=== PATIENT | female | born 1970 | race Caucasian/White ===

== ENCOUNTER 2017-08-10 13:49 | Outpatient (CLI) | payer OTHER | END 2017-08-10 13:50 | disposition home or self-care (01) | LOC: SC 13:49 | PROVIDERS: ATTEND Internal Medicine Pulmonary Disease | DX: G47.10 Hypersomnia, unspecified (principal); G47.8 Other sleep disorders; R06.83 Snoring | CPT/HCPCS: 99203; 99212 ==

== ENCOUNTER 2017-10-04 19:19 | Outpatient (CLI) | payer OTHER | END 2017-10-04 19:20 | disposition home or self-care (01) | LOC: SC 19:19 | PROVIDERS: ATTEND Internal Medicine Pulmonary Disease | DX: G47.10 Hypersomnia, unspecified (principal); R06.83 Snoring | CPT/HCPCS: 95810 ==

== ENCOUNTER 2018-08-31 15:14 | Outpatient (CLI) | payer OTHER ==
--- NOTE | 2018-08-31 16:44 | MRI Report ---
Reason: PAIN IN UNSPECIFIED KNEE Procedure Date: 08/31/2018 Accession Number: [id number] / [id number] Procedure: MRI - Knee RT W/O CPT Code: FULL RESULT: EXAM: RIGHT KNEE MRI WITHOUT CONTRAST EXAM DATE: 08/31/2018 03:42 PM. CLINICAL HISTORY: Right knee pain, locking, patellar dislocation. COMPARISON: Right knee MRI from 11/30/2009. TECHNIQUE: Multiplanar, multisequence T1-weighted and fluid-sensitive sequences of the knee without contrast. Other: None. FINDINGS: Bones and Articular Cartilage: Small marginal osteophytes at the femoral condyles, tibial plateau, femoral trochlea, and patella. There is an approximately 1 x 0.4 cm full-thickness articular cartilage defect at the posterior aspect of the lateral femoral condyle which is new since the previous study. Focal grade 2 chondromalacia at the lateral tibial plateau. Grade 3-4 chondromalacia at the lateral patellar facet which has increased since the previous study. Lateral subluxation of the patella by approximately 7 mm. Full-thickness articular cartilage fissure at the medial patellar facet. Grade 4 chondromalacia and mild subchondral marrow edema at the lateral aspect of the lateral trochlear facet which is unchanged. Patella archie is present. Medial Meniscus: The medial meniscus is intact. Lateral Meniscus: The lateral meniscus is intact. Cruciate Ligaments: The anterior and posterior cruciate ligaments are intact. Collateral Ligaments: The medial collateral and lateral collateral ligamentous structures are intact. Tendons: The quadriceps, patellar, semimembranosus, and popliteus tendons are unremarkable. Musculature: No edema or fatty atrophy. Other: There is a moderate to large size joint effusion. There is sub-synovial fatty proliferation consistent with lipoma arborescens which has increased since the previous study. No popliteal cyst. There is an approximately 1.4 x 1.5 x 0.7 cm loose body within the medial aspect of the patellofemoral compartment. There is a 6 mm loose body within the posterolateral aspect of the medial joint compartment. The medial and lateral retinacula are intact. Small ganglion or small amount of fluid at the semimembranosus bursa. The subcutaneous tissues and fat pads are unremarkable. IMPRESSION: 1. Tricompartmental osteoarthritis which is most significant at the patellofemoral compartment. Lateral subluxation of the patella by approximately 7 mm. Patella archie is also present. 2. No meniscal tear or ligament injury. 3. Moderate to large size joint effusion. 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 4. Loose bodies within the medial aspect of the patellofemoral compartment and posterolateral aspect of the medial joint compartment. 5. Small ganglion or small amount of fluid at the semimembranosus bursa. [facility] MUSCULOSKELETAL RADIOLOGY SECTION
== END 2018-08-31 15:15 | disposition home or self-care (01) ==
LOC: DI 15:14
PROVIDERS: ATTEND Family Medicine
DX: M17.11 Unilateral primary osteoarthritis, right knee (principal); S83.011A Lateral subluxation of right patella, initial encounter; M25.461 Effusion, right knee; D17.79 Benign lipomatous neoplasm of other sites

== ENCOUNTER 2020-05-07 08:56 | Emergency (ER) | payer OTHER ==
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
[2020-05-07] MEDS ORDERED: LIDOCAINE 1%-EPI 1:100000 20 ML MDV SUBQ STA (09:20)
--- NOTE | 2020-05-07 10:05 | XRAY Report ---
PROCEDURE: Knee 3 View RT INDICATIONS: knee injury and developed effusion TECHNIQUE: AP, crosstable lateral, and sunrise views of the right knee were acquired. COMPARISON: Right MRI dated 08/31/2018 FINDINGS: Bones: No acute fracture or dislocation. No suspicious bony lesions. Full-thickness joint space na rrowing is seen in the lateral portion of the patellofemoral compartment and small marginal osteophyt es. Mild marginal osteophyte formation is also seen in the medial femorotibial compartment. Soft tissues: A moderate to large joint effusion is seen without a discrete fluid/fluid level. No elias spicious soft tissue calcifications. IMPRESSION: 1. No acute fracture or dislocation. 2. Moderate to severe degenerative changes in the patellofemoral compartment. Mild osteoarthrosis in the medial compartment. 3. Large joint effusion. Reviewed by: Aj Carballo MD on 05/07/2020 10:03 AM PDT Approved by: Aj Carballo MD on 05/07/2020 10:03 AM PDT Station ID: [id number]
[2020-05-07 10:33] VITALS: BP 129/89
== END 2020-05-07 10:32 | disposition home or self-care (01) ==
LOC: ED 08:56
DX: M25.461 Effusion, right knee (principal); M17.11 Unilateral primary osteoarthritis, right knee; S89.91XA Unspecified injury of right lower leg, initial encounter; X50.1XXA Overexertion from prolonged static or awkward postures, initial encounter; Y93.55 Activity, bike riding
CPT/HCPCS: 20610

== ENCOUNTER 2020-08-13 10:30 | Outpatient (CLI) | payer OTHER ==
--- NOTE | 2020-08-14 16:44 | Mammography Report ---
BILATERAL DIGITAL DIAGNOSTIC MAMMOGRAM 3D/2D: 08/13/2020 CLINICAL: Intermittent focal left breast pain. Comparison is made to exam dated: 07/09/2018 mammogram - [facility]. The tissue of both breasts is heterogeneously dense. This may lower the sensitivity of mammography. No significant masses, calcifications, or other findings are seen in either breast. IMPRESSION: INCOMPLETE: NEEDS ADDITIONAL IMAGING EVALUATION There is no abnormality seen in the left breast to correspond with the pain, however, ultrasound is r ecommended. This exam was interpreted at Station ID: [id number]. NOTE: For mammograms, a report in lay terms will be sent to the patient. Approximately 15% of breast malignancies will not be visualized mammographically. In the management of a palpable breast mass, a negative mammogram must not discourage biopsy of a clinically suspicious lesion. SUMMARY: Targeted ultrasound is recommended for further evaluation and will be scheduled immediately following this exam. Electronically Signed By: Aj Carballo M.D. ar/penrad:08/13/2020 11:43:24 ACR BI-RADS Category 0: Incomplete 3340F PARENCHYMAL PATTERN: (D) - The breast(s) demonstrate(s) heterogeneously dense fibroglandular winnie nichole. BI-RADS CATEGORY: (0) - 0 Ultrasound [id number] Immediate follow-up LATERALITY: (L)
--- NOTE | 2020-08-14 16:44 | Ultrasound Report ---
LIMITED ULTRASOUND OF LEFT BREAST: 08/13/2020 CLINICAL: Left nipple pain. Comparison is made to exams dated: 08/13/2020 mammogram and 07/09/2018 mammogram - [facility]. Ultrasound of the left breast retroareolar was performed. No significant abnormalities were seen sonographically in the left breast. IMPRESSION: NEGATIVE There is no sonographic evidence of malignancy. There is no abnormality seen in the left breast to correspond with the pain, however, clinical correl ation is recommended. A 1 year screening mammogram is recommended. This exam was interpreted at Station ID: [id number]. Electronically Signed By: Aj rodriguez/glenn:08/13/2020 11:44:15 Ultrasound BI-RADS: 1 Negative BI-RADS CATEGORY: (1) - 1 RECOMMENDATION: (ANNUAL) - Recommend routine annual screening mammography. [id number] 1 year screening LATERALITY: (B)
== END 2020-08-13 10:31 | disposition home or self-care (01) ==
LOC: DI 10:30
PROVIDERS: ATTEND Family Medicine
DX: N64.4 Mastodynia (principal); Z76.89 Persons encountering health services in other specified circumstances
CPT/HCPCS: 76642; 77066

== ENCOUNTER 2022-04-25 09:06 | Outpatient (CLI) | payer OTHER ==
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
[2022-04-25 10:00] VITALS: BP 128/73
== END 2022-04-25 09:07 | disposition home or self-care (01) ==
LOC: SC 09:06
PROVIDERS: ATTEND Nurse Practitioner Family
DX: R06.83 Snoring (principal); G47.8 Other sleep disorders; E66.9 Obesity, unspecified; Z68.30 Body mass index [BMI] 30.0-30.9, adult; Z87.891 Personal history of nicotine dependence
CPT/HCPCS: 99203; 99212

== ENCOUNTER 2022-05-06 20:25 | Outpatient (CLI) | payer OTHER | END 2022-05-06 20:26 | disposition home or self-care (01) | LOC: SC 20:25 | PROVIDERS: ATTEND Nurse Practitioner Family | DX: G47.33 Obstructive sleep apnea (adult) (pediatric) (principal); G47.61 Periodic limb movement disorder | CPT/HCPCS: 95810 ==

== ENCOUNTER 2022-05-23 15:27 | Outpatient (CLI) | payer OTHER ==
[2022-05-23 15:55] VITALS: BP 122/76
--- NOTE | 2022-05-23 15:55 | SLEEP CARE CONSULTATION ---
Information from patient questionnaire entered by Tamara Lopez MA. I have reviewed and concur with the information entered by Tamara Lopez MA. This document represents the service I personally performed and the decisions made by , Helena Lopez ARNP. History of Present Illness Service Date and Time: 05/23/2022 1527 Initial [place] Sleepiness Scale score: 10 (04/24/2022) Current [place] Sleepiness Scale score: 10 (05/23/2022) Additional HPI information: KATRINA DENTON returns for follow up and results of the recently performed polysomnography. I explained the pathophysiology behind obstructive sleep apnea. We then spent quite a bit of time discussing different treatment options. For mild obstructive sleep apnea, surgery and oral appliance are alternatives to nasal CPAP therapy but in moderate or severe cases, nasal CPAP is the most effective and reliable treatment. Because apnea is primarily in supine position, then positional management therapy could be effective. Methods discussed such as positioning with pillows to prevent supine sleep. I reviewed the impact of weight changes on sleep apnea and strongly recommended losing weight. After some discussion, the patient opted to go with the nasal CPAP therapy. Nasal autoCPAP set at [id number] will be ordered with rationale explained. A manual titration study will be ordered if unable to find optimal pressure with office adjustments. I explained how CPAP machine works and what to expect when using the machine. Using CPAP every night in order to get used to it was emphasized. Patient advised to put CPAP mask on before getting into bed so as not to fall asleep without CPAP. To assist acclimation to CPAP use, it could also be used for a short time during day while reading or watching TV. The patient was instructed to call the CPAP supplier to discuss any mechanical problem that may occur. If the mask given is uncomfortable or is difficult to keep on through the night even with adjustment, contact the CPAP supplier as many will replace with an other mask style if notified before 30 days. If snoring or perceives is not getting enough air or too much air from the machine, notify this office. Patient does not drink alcohol. Patient was cautioned about risks of drowsy driving until sleepiness symptoms resolve. Patient denies drowsy driving. Sleep Study - Results Type of Sleep Study: Polysomnography (F/U POLY, 05/06/2022 [facility], POS,) Prior sleep studies: Yes Year and Where: 2016 [facility] Polysomnography/Home Sleep Study results: IMPRESSION: The quality of the study is good. The patient had normal sleep efficiency. Except for mild sleep fragmentation, the sleep architecture was normal as well. Respiratory monitoring showed mild obstructive sleep apnea-hypopnea (AHI = 7.8) associated with frequent arousals, oxyhemoglobin desaturation and mild hypoxia ([place]on oxygen saturation of 86%). The respiratory events occurred mainly during supine sleep (supine AHI = 10.0; nonsupine = 5.22). Snore was moderate to loud in int ensity. There was mild periodic leg movement of sleep not contributing to the sleep fragmentation. Cardiac rhythm was normal sinus rhythm without significant arrhythmia. No abnormal behavior (parasomnia) observed during the night. Allergies and Home Medications Known drug allergies: Yes (PN) Home medication list reviewed: Yes (no changes) Allergy and home medication list: Allergies Penicillins Allergy (Verified 05/07/20 08:58) throat swelling Review of Systems Review of systems same as previous: Yes (no changes) Physical Exam Vital signs obtained and entered by: ADARSH MAGANA Blood Pressure: 122/76 (RESP16, LEFT, PULSE 65) Heart Rate: 65 O2 Saturation: 97 (PAPER MASK) Height: 5 ft 8 in Weight: 200 lb 11.2 oz (CLOTHES) Weight change since last visit: LOSING - WALKING, HEALTHY DIET Body Mass Index: 30.5 BMI Classification: Obese Impression and Plan 1. Obstructive Sleep Apnea-Hypopnea Syndrome, mild, with lowest oxygen saturation of 86%. Obviously this is the cause of the patients symptoms of unrefreshed sleep, and excessive daytime sleepiness. Positive pressure therapy could benefit attention deficit. As mentioned above, the patient will be started on nasal autoCPAP therapy with pressure set at 4-15 cmH2O. Compliance guidelines also reviewed. A copy of compliance guidelines will be given for reference at check out. Because the apnea is more severe supine, I instructed to avoid sleeping supine using pillow positioning until able to start CPAP use. 2. Periodic limb movement, mild, that did not fragment patients sleep. Periodic limb movement of sleep (PLMS) is characterized by episodes of repetitive limb movements that occur during sleep and usually involve the lower limbs. The etiology is unknown but may follow up with PCP if become troublesome. Caffeine can also aggravate PLMS and should be avoided. Sleep hygiene methods can also improve sleep as well as lifestyle changes such as regular exercise. Patient was advised that no treatment is needed at this time. If symptoms increase, then further evaluation is indicated. * Nasal auto CPAP therapy, pressure at 4-15 cm H2O. * Attempt to lose weight. * Avoid alcohol consumption near bedtime. * Avoid supine sleep until using CPAP. * The patient is again cautioned about driving until sleepiness completely resolves. * Return one month after CPAP obtained. I will assess response to therapy and compliance at that time. Counseling Topics: Weight loss health impact Visit Type: In Office Time Spent with Patient (minutes): 20 Provider Statement: I spent 100% of the Face to Face Visit with the patient with greater than 50% spent counseling the patient and coordination of care.
== END 2022-05-23 15:28 | disposition home or self-care (01) ==
LOC: SC 15:27
PROVIDERS: ATTEND Nurse Practitioner Family
DX: G47.33 Obstructive sleep apnea (adult) (pediatric) (principal); G47.61 Periodic limb movement disorder; E66.9 Obesity, unspecified; Z68.30 Body mass index [BMI] 30.0-30.9, adult
CPT/HCPCS: 99212; 99213

== ENCOUNTER 2023-03-06 11:23 | Outpatient (CLI) | payer OTHER | END 2023-03-06 23:59 | disposition critical access hospital (66) | LOC: EMS 11:23 | DX: R10.32 Left lower quadrant pain (principal); R10.2 Pelvic and perineal pain; R10.814 Left lower quadrant abdominal tenderness; R39.15 Urgency of urination; R11.0 Nausea; R06.02 Shortness of breath; R55 Syncope and collapse | CPT/HCPCS: A0425; A0427 ==

== ENCOUNTER 2023-03-06 11:44 | Emergency (ER) | payer OTHER ==
[2023-03-06] MEDS ORDERED: ONDANSETRON 4 MG/2 ML VIAL IVP STA (11:51)
[2023-03-06] MEDS ORDERED: KETOROLAC 15 MG/ML VIAL IVP STA (11:51)
[2023-03-06] MEDS ORDERED: HYDROmorphone 1 MG/ML CARPUJECT IVP STA (11:51)
[2023-03-06] MEDS ORDERED: SODIUM CHLORIDE 0.9% 1,000 ML IV STA (11:51)
--- NOTE | 2023-03-06 11:52 | ED Physician Documentation ---
PD HPI ABD PAIN - Stated complaint Stated Complaint: LLQ ABD PX - Chief complaint Chief Complaint: Abd Pain - History obtained from History obtained from: Patient - Additional information Additional information: Otherwise healthy 52-year-old woman has had urinary frequency without dysuria for about a week or so. Went to the [facility] where she says she had blood work and urine done, this was about 5 days ago.. She never heard results. Today she developed severe sudden onset left lower quadrant pain associated with nausea at approximately 10:30 in the morning. It is a sharp stabbing pain that she had never had before. No history of renal colic. She received 50 mcg of fentanyl on route with good but transient improvement of her pain. PD PAST MEDICAL HISTORY - Past Medical History Cardiovascular: None Neuro: None Endocrine/Autoimmune: None - Past Surgical History Past Surgical History: Yes /[employer]: section - Present Medications Home Medications: Ambulatory Orders Medication Instructions Recorded Confirmed Meclizine [Antivert] 25 mg PO Q6H PRN #20 tablet 02/23/14 Ondansetron [Zofran Odt] 8 mg PO Q6H PRN #10 tab.rapdis 02/23/14 Ibuprofen [Motrin] 800 mg PO Q8H PRN #30 tablet 03/06/23 Oxycodone HCl/Acetaminophen 1 - 2 each PO Q6H PRN #14 tablet 03/06/23 [Percocet 5-325 mg Tablet] Tamsulosin [Flomax] 0.4 mg PO DAILY #14 cap 03/06/23 - Allergies Allergies/Adverse Reactions: Allergies Allergy/AdvReac Type Severity Reaction Status Date / Time Penicillins Allergy throat Verified 05/07/20 08:58 swelling - Social History Does the pt smoke?: No Smoking Status: Never smoker Does the pt drink ETOH?: No Does the pt have substance abuse?: No PD ED PE NORMAL - Vitals Vital signs reviewed: Yes - General General: Alert and oriented X 3, Other (Appears uncomfortable) - Abdomen Abdomen: Normal bowel sounds, Soft, Other (Minimal left lower quadrant tenderness, no surgical signs) - Neuro Neuro: Alert and oriented X 3, Normal speech - Psych Psych: Normal mood, Normal affect Results - Vitals Vitals: Vital Signs - 24 hr 03/06/23 03/06/23 03/06/23 11:48 12:42 12:56 Temperature 36.5 C Heart Rate 66 68 Respiratory 16 16 Rate Blood Pressure 186/103 H 144/88 H O2 Saturation 100 100 Oxygen O2 Source Room air - Labs Labs: Laboratory Tests 03/06/23 03/06/23 03/06/23 12:15 12:15 12:43 WBC 4.3 L RBC 4.72 Hgb 13.4 Hct 41.8 MCV 88.6 MCH 28.4 MCHC 32.1 RDW 13.0 Plt Count 380 MPV 8.6 Neut # (Auto) 3.0 Lymph # (Auto) 0.9 L [place] # (Auto) 0.3 Eos # (Auto) 0.1 Baso # (Auto) 0.1 Absolute Nucleated RBC 0.00 Nucleated RBC % 0.0 Sodium Potassium Chloride Carbon Dioxide Anion Gap BUN Creatinine Estimated GFR (MDRD) Glucose Calcium Total Bilirubin AST ALT Alkaline Phosphatase Total Protein Albumin Globulin Albumin/Globulin Ratio Urine Color YELLOW Urine Clarity SL. CLOUDY Urine pH 7.0 Ur Specific [place] 1.020 Urine Protein NEGATIVE Urine Glucose (UA) NEGATIVE Urine Ketones NEGATIVE Urine Occult Blood TRACE-INTA Urine Nitrite NEGATIVE Urine Bilirubin NEGATIVE Urine Urobilinogen 0.2 (NORMAL) Ur Leukocyte Esterase NEGATIVE Urine RBC 0-5 Urine WBC 0-3 Ur Squamous Epith Cells RARE Squamous Amorphous Sediment Moderate Urine Bacteria Rare Ur Microscopic Review INDICATED Urine Culture Comments NOT INDICATED Urine HCG, Qual NEGATIVE 03/06/23 12:43 WBC RBC Hgb Hct MCV MCH MCHC RDW Plt Count MPV Neut # (Auto) Lymph # (Auto) [place] # (Auto) Eos # (Auto) Baso # (Auto) Absolute Nucleated RBC Nucleated RBC % Sodium 135 Potassium 3.4 L Chloride 104 Carbon Dioxide 22 Anion Gap 9.0 BUN 21 H Creatinine 0.8 Estimated GFR (MDRD) 76 L Glucose 109 H Calcium 8.4 L Total Bilirubin 0.5 AST 15 ALT 17 Alkaline Phosphatase 50 Total Protein 6.3 L Albumin 3.5 Globulin 2.8 Albumin/Globulin Ratio 1.3 Urine Color Urine Clarity Urine pH Ur Specific [place] Urine Protein Urine Glucose (UA) Urine Ketones Urine Occult Blood Urine Nitrite Urine Bilirubin Urine Urobilinogen Ur Leukocyte Esterase Urine RBC Urine WBC Ur Squamous Epith Cells Amorphous Sediment Urine Bacteria Ur Microscopic Review Urine Culture Comments Urine HCG, Qual - Rads (name of study) CT KUB Relevant Findings:: Final report received, EMP independent interpretation of test PD Medical Decision Making - ED course ED course: 52-year-old woman who presents with sudden onset left lower quadrant left flank pain consistent with renal colic which is proven on CT. She was all but pain- free after IV Toradol and Dilaudid here. We discussed the incidental findings on her CT including gallstones, hiatal and umbilical hernias. Departure - Departure Disposition: 01 Home, Self Care Clinical Impression: Renal colic Condition: Good Record reviewed to determine appropriate education?: Yes Instructions: ED Stone Renal W Colic Prescriptions: Tamsulosin [Flomax] 0.4 mg PO DAILY #14 cap Ibuprofen [Motrin] 800 mg PO Q8H PRN #30 tablet PRN Reason: PAIN &/OR FEVER Oxycodone HCl/Acetaminophen [Percocet 5-325 mg Tablet] 1 - 2 each PO Q6H PRN #14 tablet PRN Reason: pain Comments: I [facility] [place]. As discussed, the cause of your pain today is a 3 mm left ureteral/kidney stone. Given the size I expect to pass relatively quickly. Until it does strain your urine as we discussed and if you obtain any material taken to your doctor for examination. Return for new or worsening symptoms. Incidental findings on CT included gallstones, small hiatal hernia and a small umbilical hernia. I am prescribing a short course of narcotic pain medication for you. These are potentially dangerous and addictive medications that should be used carefully. These medications may constipate you. Take an [id number] stool softener (docusate) twice daily with plenty of water while taking these medications. If you go 24 hours without a bowel movement, take [id number] miralax, per package instructions. Do not drink or drive while taking these medications. If you received narcotic or sedating medications while in the emergency department, do not drive for 24 hours. Store this medication in a safe, secure place and out of reach of children. It is a violation of federal law to give or sell this medication to another person or to use in a manner other than prescribed. The ED will not refill narcotic prescriptions, including prescriptions lost or stolen. To dispose of unwanted medications: 1. [facility] at [address] in [place] has a medication drop box. They accept prescription medications (in pill form) Thursday through Thursday 9:00 a.m. to 5:00 p.m. 2. The [facility] accepts prescription medications (in pill form only) for disposal year round. Call for more information. 3. Contact the [facility] for the next [facility] sponsored prescription drug collection event. , [phone], or [phone]; Note that many narcotic pain relievers also contain Tylenol/acetaminophen. Please ensure that your total dose of acetaminophen from all sources does not exceed 3 g (3000 mg) per day.
[2023-03-06 12:24] LABS: HCG UR QUAL NEGATIVE
[2023-03-06 12:31] LABS: BILIRUBIN,URINE NEGATIVE (NEGATIVE); GLUCOSE, URINE (UA) NEGATIVE (NEGATIVE); KETONES,URINE (UA) NEGATIVE (NEGATIVE); LEUKOCYTE ESTERASE, URINE NEGATIVE (NEGATIVE); NITRITE,URINE NEGATIVE (NEGATIVE); OCCULT BLOOD,URINE TRACE-INTA (NEGATIVE); PROTEIN,URINE NEGATIVE (NEGATIVE); UROBILINOGEN,URINE 0.2 (NORMAL) E.U./dL (NORMAL)
[2023-03-06 12:32] LABS: CLARITY,URINE SL. CLOUDY (CLEAR)
[2023-03-06 12:47] LABS: AMORPHOUS SEDIMENT,UR Moderate /LPF; BACTERIA,URINE Rare /HPF (None Seen); RBC,URINE 0-5 /HPF (0-5); SQUAMOUS EPITHELIAL CELL,UR RARE Squamous (<= Few); WBC,URINE 0-3 /HPF (0-5)
[2023-03-06 12:48] LABS: BASOPHILS # (AUTO) 0.1 10^3/uL (0.0-0.1); BASOPHILS % (AUTO) 1.4 %; EOSINOPHILS # (AUTO) 0.1 10^3/uL (0.0-0.7); EOSINOPHILS % (AUTO) 2.1 %; HCT - HEMATOCRIT 41.8 % (37.0-47.0); HGB - HEMOGLOBIN 13.4 g/dL (12.0-16.0); LYMPHOCYTES # (AUTO) 0.9 10^3/uL (1.5-3.5); LYMPHOCYTES % (AUTO) 21.1 %; MEAN CORPUSCULAR HEMOGLOBIN 28.4 pg (27.0-31.0); MEAN CORPUSCULAR HGB CONC 32.1 g/dL (32.0-36.0); MEAN CORPUSCULAR VOLUME 88.6 fL (81.0-99.0); MEAN PLATELET VOLUME 8.6 fL (7.9-10.8); MONOCYTES # (AUTO) 0.3 10^3/uL (0.0-1.0); MONOCYTES % (AUTO) 6.5 %; NEUTROPHILS % (AUTO) 68.7 %; PLT - PLATELET COUNT 380 10^3/uL (130-450); RED BLOOD COUNT 4.72 10^6/uL (4.20-5.40); WHITE BLOOD COUNT 4.3 x10^3/uL (4.8-10.8)
--- NOTE | 2023-03-06 12:54 | CT Report ---
PROCEDURE: ABDOMEN/PELVIS WO INDICATIONS: L flank pain/LLQ pain TECHNIQUE: Noncontrast 5 mm thick sections acquired from the diaphragms to the symphysis. 5 mm coronal and sagi ttal reformats were then performed. For radiation dose reduction, the following was used: automated exposure control, adjustment of mA and/or kV according to patient size. COMPARISON: None. FINDINGS: Image quality: Excellent. Lung bases and heart: Bibasilar atelectasis. Small hiatal hernia. Heart size is within normal limits. Liver: No solid mass. Gallbladder and biliary tree: Multiple gallstones noted. No CT evidence for acute cholecystitis. Spleen: No splenomegaly. Pancreas: No pancreatic ductal dilation. Adrenals: No adrenal nodule. Kidneys and ureters: Right kidney is normal in size. No right-sided renal stone or hydronephrosis. No perinephric stranding. Right ureter is normal in course and caliber without ureteral stone. Faint punctate left renal calcifications compatible with renal stones. There is moderate left hydrour eteronephrosis and associated mild perinephric stranding. There is a 3 mm obstructing distal left ure teral stone visualized at the left ureterovesicular junction (144/series 3). Bowel and peritoneum: No bowel distension. No pathologic free fluid. Normal appendix. Lymph nodes: No central or retroperitoneal adenopathy. Vessels: No infrarenal aortic aneurysm. PELVIS Reproductive organs: Unremarkable. Bladder: No abnormal wall thickening, accounting for underdistension. No bladder stone seen. Pelvic lymph nodes: No pelvic adenopathy by size criteria. Bones: No aggressive osseous abnormality. Other: Fat-containing umbilical hernia without acute inflammation.. IMPRESSION: Small punctate 3 mm obstructing distal left ureteral stone visualized at the left ureterovesicular ju nction with associated moderate left hydroureteronephrosis. Mild perinephric stranding also present. Recommend correlation for possible concurrent infectious uropathy symptoms. Normal appendix. Cholelithiasis without CT evidence for acute cholecystitis. Small hiatal hernia. Fat-containing umbilical hernia without acute inflammation. Reviewed by: Francis Goldman MD on 03/06/2023 12:53 PM PDT Approved by: Francis Goldman MD on 03/06/2023 12:53 PM PDT Station ID: [id number]
[2023-03-06 12:59] LABS: ALBUMIN 3.5 g/dL (3.2-5.5); ALBUMIN/GLOBULIN RATIO 1.3 (1.0-2.2); BILIRUBIN,TOTAL 0.5 mg/dL (0.2-1.0); CALCIUM 8.4 mg/dL (8.5-10.3); CREATININE 0.8 mg/dL (0.4-1.0); POTASSIUM 3.4 mmol/L (3.5-5.0); TOTAL PROTEIN 6.3 g/dL (6.7-8.2)
[2023-03-06 13:33] VITALS: BP 123/81
== END 2023-03-06 13:32 | disposition home or self-care (01) ==
LOC: EDUNIT# → ED 11:44
DX: N13.2 Hydronephrosis with renal and ureteral calculous obstruction (principal)
CPT/HCPCS: 36415; 74176; 80053; 81001; 81025; 85025; 96374; 96375; 99284; J1170; 81003; 87086

== ENCOUNTER 2024-01-08 10:03 | Outpatient (CLI) | payer BC ==
[2024-01-08 12:54] LABS: BASOPHILS # (AUTO) 0.1 10^3/uL (0.0-0.1); BASOPHILS % (AUTO) 1.6 %; EOSINOPHILS # (AUTO) 0.1 10^3/uL (0.0-0.7); EOSINOPHILS % (AUTO) 2.9 %; HCT - HEMATOCRIT 46.7 % (37.0-47.0); HGB - HEMOGLOBIN 15.3 g/dL (12.0-16.0); LYMPHOCYTES # (AUTO) 1.3 10^3/uL (1.5-3.5); LYMPHOCYTES % (AUTO) 28.9 %; MEAN CORPUSCULAR HEMOGLOBIN 29.5 pg (27.0-31.0); MEAN CORPUSCULAR HGB CONC 32.8 g/dL (32.0-36.0); MEAN CORPUSCULAR VOLUME 90.2 fL (81.0-99.0); MEAN PLATELET VOLUME 8.8 fL (7.9-10.8); MONOCYTES # (AUTO) 0.3 10^3/uL (0.0-1.0); MONOCYTES % (AUTO) 7.4 %; NEUTROPHILS # (AUTO) 2.6 10^3/uL (1.5-6.6); PLT - PLATELET COUNT 422 10^3/uL (130-450); RED BLOOD COUNT 5.18 10^6/uL (4.20-5.40); RED CELL DISTRIBUTION WIDTH 13.6 % (12.0-15.0); WHITE BLOOD COUNT 4.4 x10^3/uL (4.8-10.8)
[2024-01-08 13:23] LABS: % IRON SATURATION 29 % (20-50); ALBUMIN 4.2 g/dL (3.2-5.5); ALBUMIN/GLOBULIN RATIO 1.8 (1.0-2.2); ALKALINE PHOSPHATASE 58 IU/L (42-121); ALT ALANINE AMINOTRANSFERASE 17 IU/L (10-60); AST ASPARTATE AMINOTRANSFERASE 17 IU/L (10-42); BILIRUBIN,TOTAL 0.7 mg/dL (0.2-1.0); BUN - BLOOD UREA NITROGEN 14 mg/dL (6-20); CALCIUM 9.5 mg/dL (8.5-10.3); CARBON DIOXIDE - CO2 28 mmol/L (21-32); CHLORIDE 106 mmol/L (101-111); CHOL/HDL RATIO 3.2 (<4.4); CHOLESTEROL 186 mg/dL; CREATININE 0.7 mg/dL (0.6-1.3); CRP - C-REACTIVE PROTEIN < 0.5 mg/dL (<0.5); GFR - MDRD 88 (>89); GLUCOSE 95 mg/dL (74-104); HDL CHOLESTEROL 59 mg/dL; IRON 94 ug/dL (50-212); LDL CHOLESTEROL,CALCULATED 109 mg/dL; LDL/HDL RATIO 1.8 (<4.4); POTASSIUM 3.9 mmol/L (3.5-4.5); SODIUM 139 mmol/L (135-145); TOTAL IRON BINDING CAPACITY 328 ug/dL (250-450); TOTAL PROTEIN 6.6 g/dL (6.4-8.9); TRANSFERRIN 234 mg/dL (203-362); TRIGLYCERIDES 92 mg/dL (48-352); VLDL CHOLESTEROL 18 mg/dL
[2024-01-08 13:33] LABS: THYROID STIMULATING HORMONE 0.71 uIU/mL (0.34-5.60)
== END 2024-01-08 10:04 | disposition home or self-care (01) ==
LOC: LAB.N 10:03
PROVIDERS: ATTEND Physician Assistant
DX: R41.3 Other amnesia (principal); R51.9 Headache, unspecified; R42 Dizziness and giddiness; Z13.9 Encounter for screening, unspecified
CPT/HCPCS: 36415; 80053; 80061; 82607; 83540; 83721; 84443; 84466; 85025; 85651; 86140

== ENCOUNTER 2024-02-01 09:57 | Outpatient (CLI) | payer BC ==
[2024-02-01] MEDS ORDERED: GADOTERATE MEGLUMINE 10 MMOL/20 ML VIAL ONE (10:14)
--- NOTE | 2024-02-01 11:24 | MRI Report ---
PROCEDURE: Brain W/WO INDICATIONS: VIEYRA CONTRAST: 16.8ml Clariscan TECHNIQUE: Noncontrast axial T1 spin echo, axial T2 fast spin echo, sagittal and axial FLAIR, coronal T2 fast sp in echo, axial gradient echo, axial diffusion and ADC through the brain. After the administration of contrast, axial and coronal T1 spin echo with fat saturation through the brain. COMPARISON: None. FINDINGS: Image quality: Excellent. CSF spaces: Basal cisterns are patent. No extra-axial fluid collections. Ventricles are normal in size and shape. Brain: No midline shift. No intracranial bleeds or masses. No abnormal intracranial enhancement. .The brainstem appears normal. Diffusion-weighted images demonstrate no acute ischemic insults. No chronic ischemic insults. Normal intravascular flow voids are present. Skull and face: Calvarial marrow is normal in signal. Orbits appear normal. Sinuses: Sinuses and mastoids appear clear. IMPRESSION: 1.No cause for patient's symptoms is identified. 2.No acute intracranial abnormalities. Reviewed by: Chris Lanier MD on 02/01/2024 11:22 AM PDT Approved by: Chris Lanier MD on 02/01/2024 11:22 AM PDT Station ID: [id number]
[2024-02-01] MEDS: GADOTERATE MEGLUMINE 10 MMOL/20 ML VIAL IVP ONE (18:25)
== END 2024-02-01 09:58 | disposition home or self-care (01) ==
LOC: DI 09:57
PROVIDERS: ATTEND Physician Assistant
DX: R51.9 Headache, unspecified (principal)
CPT/HCPCS: 70553; A9575